=== PATIENT | male | born 1930 | race Caucasian/White ===

== ENCOUNTER 2016-09-09 18:42 | Emergency (ER) | payer OTHER ==
[~2016-09-09] VITALS: Ht 167.6 cm; Wt 66.4 kg
[2016-09-09] MEDS ORDERED: DIPH,PERTUSS(ACELL),TET VAC/PF 0.5 ML IM-VACC ONE ×2 (19:00→19:07)
[2016-09-09] MEDS ORDERED: LIDOCAINE 1%-EPI 1:100K, 20ML SQ ONE (19:00)
[2016-09-09] MEDS ORDERED: LIDOCAINE 1%-EPI 1:100K, 20ML ONE (19:06)
[2016-09-09] MEDS ORDERED: PLEASE ENTER ALLERGIES MC SCH ×2 (19:30)
[2016-09-09 20:32] VITALS: BP 156/98
== END 2016-09-09 20:34 | disposition home or self-care (01) ==
LOC: ED 20:28
DX: S01.01XA Laceration without foreign body of scalp, initial encounter (principal); S00.03XA Contusion of scalp, initial encounter; Z79.82 Long term (current) use of aspirin; W01.0XXA Fall on same level from slipping, tripping and stumbling without subsequent striking against object, initial encounter; Y93.89 Activity, other specified; Y99.8 Other external cause status; Y92.009 Unspecified place in unspecified non-institutional (private) residence as the place of occurrence of the external cause
CPT/HCPCS: 12001; 70450; 90471; 90715; 99284; J3490

== ENCOUNTER → 2016-12-22 | Outpatient (CLI) | payer OTHER ==
[~2016-12-22] MED LIST: REGADENOSON 0.4 MG/5 ML SYRINGE ONE
== END | disposition home or self-care (01) ==
LOC: CFH 07:52
PROVIDERS: ATTEND Internal Medicine Cardiovascular Disease
DX: R94.31 Abnormal electrocardiogram [ECG] [EKG] (principal); I10 Essential (primary) hypertension; I45.10 Unspecified right bundle-branch block; E78.2 Mixed hyperlipidemia
CPT/HCPCS: 78452; 93017; A9502; J2785